=== PATIENT | female | born 1945 | race Caucasian/White ===

== ENCOUNTER → 2021-07-18 | Day surgery (SDC) | payer OTHER ==
[~2021-07-18] VITALS: Ht 165.1 cm; Wt 64.9 kg
[~2021-07-18] MED LIST: ALLERGY4 MG PO; ALREX5 ML OU; AMARYL4 MG PO; ASPIRIN EC81 MG PO; ATIVAN1 MG PO; CARDURA2 MG PO; COLESTID1 GM PO; COREG12.5 MG PO; COZAAR100 MG PO; CRESTOR10 MG PO; CRESTOR40 MG PO; CRESTOR5 MG PO; CYMBALTA20 M1 PO; DIOVAN80 MG PO; INVOKANA300 MG PO; LOVAZA1 GM PO; METFORMIN HCL1000 M2 PO; METFORMIN HCL500 M3 PO; NITROSTAT0.4 MG SL; NORVASC5 MG PO; PANTOPRAZOLE SO40 MG PO; PLAVIX75 MG PO; RESTASIS1 EACH OU; VICTOZA 3-0.6 MG/0.1 SC
[2021-07-18 08:44] LABS: HCT 41.4 % (37.0-47.0); HGB 13.6 g/dl (12.5-16.0); MCH 29.9 pg (25.0-31.0); MCHC 32.9 g/dL (32.0-36.0); MPV 10.2 fL (6.0-9.5); RBC 4.55 M/uL (4.20-5.40); RDW 14.2 % (11.5-14.0); WBC 5.5 K/uL (4.0-10.5)
[2021-07-18 09:27] LABS: ALBUMIN 3.9 g/dL (3.4-5.0); BILIRUBIN - TOTAL 0.4 mg/dL (0.2-1.0); BUN/CREAT RATIO (CALC) 15.6 RATIO; CREATININE 0.9 mg/dL (0.51-0.95); GLOBULIN (CALCULATION) 3.6 g/dL; POTASSIUM 4.5 mmol/L (3.5-5.1); TOTAL PROTEIN 7.5 g/dL (6.4-8.2)
== END | disposition home or self-care (01) ==
LOC: FAS 08:04
PROVIDERS: Surgery
DX: R10.30 Lower abdominal pain, unspecified (principal); K63.89 Other specified diseases of intestine; L98.9 Disorder of the skin and subcutaneous tissue, unspecified; I25.10 Atherosclerotic heart disease of native coronary artery without angina pectoris; J45.909 Unspecified asthma, uncomplicated; E11.36 Type 2 diabetes mellitus with diabetic cataract; H26.9 Unspecified cataract; J44.9 Chronic obstructive pulmonary disease, unspecified; E11.40 Type 2 diabetes mellitus with diabetic neuropathy, unspecified; I10 Essential (primary) hypertension; E78.1 Pure hyperglyceridemia; K21.9 Gastro-esophageal reflux disease without esophagitis; E78.00 Pure hypercholesterolemia, unspecified; Z88.6 Allergy status to analgesic agent; Z91.041 Radiographic dye allergy status; Z88.5 Allergy status to narcotic agent; Z88.2 Allergy status to sulfonamides; Z91.048 Other nonmedicinal substance allergy status; Z86.010 Personal history of colon polyps; Z95.1 Presence of aortocoronary bypass graft; Z91.040 Latex allergy status; Z88.8 Allergy status to other drugs, medicaments and biological substances; Z91.013 Allergy to seafood; Z79.02 Long term (current) use of antithrombotics/antiplatelets; Z79.82 Long term (current) use of aspirin; Z87.891 Personal history of nicotine dependence
CPT/HCPCS: 36415; 80053; 82962; J1610; J2704; J7120